=== PATIENT | female | born 1950 | race Caucasian/White ===

== ENCOUNTER 2017-12-10 08:21 | Day surgery (SDC) | payer MEDICARE, MEDICAID ==
[~2017-12-10] VITALS: Ht 154.9 cm; Wt 60.6 kg
[~2017-12-10 08:21] MED LIST: ACET-2119 PO; AMLO10TA13 PO; ATOR40TA PO; BACL10TA PO; BUPR150T8 PO; DONE5TAB7 PO; DOXY150T3 PO; DULR RC; HYDR-3686 PO; LACTC PO; LIDOcaine 1%/PF 5ML 10 MG/ML VIAL SQ ONE; LISI-604 PO; METO25TA6 PO; METO5TAB98 PO; MULT-1085 PO; ONDA4TAB6 PO; OSC500T PO
[2017-12-10 08:40] VITALS: BP 188/86
[2017-12-10 08:45] VITALS: BP 169/82
[2017-12-10 08:50] VITALS: BP 176/84
[2017-12-10] MEDS ORDERED: LIDOcaine 1%/PF 5ML 10 MG/ML VIAL SQ ONE (08:50)
[2017-12-10 08:55] VITALS: BP 155/86
[2017-12-10 09:00] VITALS: BP 186/83
[2017-12-10] MEDS ORDERED: BUPR100T16 PO (09:35)
[2017-12-10] MEDS ORDERED: LISI-604 PO (09:35)
== END 2017-12-10 09:45 ==
LOC: SSTAY O 08:21
PROVIDERS: ATTEND Radiology Diagnostic Radiology
DX: J90 Pleural effusion, not elsewhere classified (principal); E11.22 Type 2 diabetes mellitus with diabetic chronic kidney disease; I13.2 Hypertensive heart and chronic kidney disease with heart failure and with stage 5 chronic kidney disease, or end stage renal disease; N18.6 End stage renal disease; I50.9 Heart failure, unspecified; F10.21 Alcohol dependence, in remission; F32.9 Major depressive disorder, single episode, unspecified; F41.8 Other specified anxiety disorders; I25.810 Atherosclerosis of coronary artery bypass graft(s) without angina pectoris; E78.5 Hyperlipidemia, unspecified; J45.998 Other asthma; M81.0 Age-related osteoporosis without current pathological fracture; Z98.41 Cataract extraction status, right eye; Z86.74 Personal history of sudden cardiac arrest; Z98.42 Cataract extraction status, left eye; Z90.710 Acquired absence of both cervix and uterus; Z86.14 Personal history of Methicillin resistant Staphylococcus aureus infection; Z86.73 Personal history of transient ischemic attack (TIA), and cerebral infarction without residual deficits; Z99.2 Dependence on renal dialysis; Z95.1 Presence of aortocoronary bypass graft; Z88.1 Allergy status to other antibiotic agents; Z79.2 Long term (current) use of antibiotics; Z88.6 Allergy status to analgesic agent; Z79.899 Other long term (current) drug therapy; Z98.890 Other specified postprocedural states
CPT/HCPCS: 32555; 71045; J2001

== ENCOUNTER 2018-03-18 10:49 | Day surgery (SDC) | payer MEDICARE, MEDICAID ==
[~2018-03-18] VITALS: Ht 175.3 cm; Wt 59.5 kg
[~2018-03-18 10:49] MED LIST changes: -ACET-2119 PO; -AMLO10TA13 PO; -BACL10TA PO; +BUPR100T16 PO; -BUPR150T8 PO; -DOXY150T3 PO; -DULR RC; -HYDR-3686 PO; -LIDOcaine 1%/PF 5ML 10 MG/ML VIAL SQ ONE; -METO5TAB98 PO; -MULT-1085 PO; -OSC500T PO
[2018-03-18] MEDS ORDERED: normal saline 1000ml 1,000 ML IV PRN (11:20)
[2018-03-18 11:51] VITALS: BP 181/93
[2018-03-18] MEDS ORDERED: SEVE800T8 PO (12:04)
[2018-03-18] MEDS ORDERED: BUPR100T5 PO (12:04)
[2018-03-18] MEDS ORDERED: lisinopril PO (12:04)
[2018-03-18] MEDS ORDERED: lasix PO (12:04)
[2018-03-18] MEDS ORDERED: ACET325C PO (12:04)
[2018-03-18] MEDS ORDERED: TRAM PO (12:04)
[2018-03-18] MEDS ORDERED: DULR RC (12:04)
[2018-03-18] MEDS ORDERED: INSU100V11 SQ (12:04)
[2018-03-18] MEDS ORDERED: HYDR-4069 PO (12:04)
[2018-03-18] MEDS ORDERED: FOLI0.8T19 PO (12:04)
[2018-03-18 12:24] LABS: BASOPHILS % (AUTO) 0.3 % (0-1); EOSINOPHILS # (AUTO) 0.1 X10'3 (0-0.9); EOSINOPHILS % (AUTO) 1.4 % (0-6); LYMPHOCYTES # (AUTO) 0.7 X10'3 (1.1-4.8); LYMPHOCYTES % (AUTO) 17.3 % (21-51); MEAN CORPUSCULAR HEMOGLOBIN 34.1 PG (27.0-31.0); MEAN CORPUSCULAR VOLUME 100.4 FL (78-98); MEAN PLATELET VOLUME 7.1 FL (7.4-10.4); MONOCYTES # (AUTO) 0.3 X10'3 (0-0.9); MONOCYTES % (AUTO) 8.9 % (2-12); NEUTROPHILS # (AUTO) 2.8 X10'3 (1.8-7.7); NEUTROPHILS % (AUTO) 72.1 % (42-75); PRE OP PLATELET COUNT 190 X10'3 (140-440); RED BLOOD COUNT 3.19 X10'6 (4.20-5.60); RED CELL DISTRIBUTION WIDTH 14.6 % (11.5-14.5)
[2018-03-18 12:27] LABS: PRE OP HEMOGLOBIN 10.9 g/dL (12.0-16.0)
[2018-03-18 12:35] LABS: ALBUMIN 3.3 G/DL (3.4-5.0); ANION GAP 17 (8-16); BLOOD UREA NITROGEN 104 MG/DL (7-18); BUN/CREATININE RATIO 11.9 (6.6-38.0); CHLORIDE 98 MMOL/L (99-107); CREATININE 8.71 MG/DL (0.40-0.90); GLUCOSE 93 MG/DL (70-104); POTASSIUM 5.2 MMOL/L (3.5-5.1); SODIUM 138 MMOL/L (135-145); TOTAL CARBON DIOXIDE 23.5 MMOL/L (24-32); eGFR 5 ML/MIN
[2018-03-18 13:01] LABS: PROTHROMBIN TIME 10.4 SECONDS (9.0-12.0)
[2018-03-18] MEDS ORDERED: LIDOcaine 1%/PF 5ML 10 MG/ML VIAL SQ ONE (13:05)
[2018-03-18] MEDS ORDERED: fentaNYL/PF 50MCG/1 ML 2ML syringe IV PRN (13:05)
[2018-03-18] MEDS ORDERED: midazolam 2 mg/2 ml injection IV PRN (13:05)
[2018-03-18] MEDS ORDERED: iohexol 300mg/ml 100ml inj. ONE (13:11)
[2018-03-18] MEDS ORDERED: LIDOcaine 1% (10mg/ml) 2ml vial ONE (13:14)
[2018-03-18] MEDS ORDERED: heparin 1,000 UNITS/NS 500ml 500 ML ONE (13:15)
[2018-03-18] MEDS ORDERED: midazolam 2 mg/2 ml injection ONE (13:15)
[2018-03-18] MEDS ORDERED: fentaNYL/PF 50MCG/1 ML 2ML syringe ONE ×2 (13:15→14:02)
[2018-03-18 14:35] VITALS: BP 181/93
[2018-03-18 14:50] VITALS: BP 196/79
[2018-03-18 15:05] VITALS: BP 187/84
[2018-03-18 15:20] VITALS: BP 184/79
== END 2018-03-18 15:30 ==
LOC: SSTAY O 10:49
PROVIDERS: ATTEND Radiology Diagnostic Radiology
DX: T82.858A Stenosis of other vascular prosthetic devices, implants and grafts, initial encounter (principal); Y83.8 Other surgical procedures as the cause of abnormal reaction of the patient, or of later complication, without mention of misadventure at the time of the procedure; Y92.89 Other specified places as the place of occurrence of the external cause; E11.22 Type 2 diabetes mellitus with diabetic chronic kidney disease; I13.2 Hypertensive heart and chronic kidney disease with heart failure and with stage 5 chronic kidney disease, or end stage renal disease; N18.6 End stage renal disease; I50.9 Heart failure, unspecified; I25.810 Atherosclerosis of coronary artery bypass graft(s) without angina pectoris; E78.5 Hyperlipidemia, unspecified; F10.21 Alcohol dependence, in remission; F32.9 Major depressive disorder, single episode, unspecified; F41.8 Other specified anxiety disorders; Z90.710 Acquired absence of both cervix and uterus; Z79.891 Long term (current) use of opiate analgesic; Z79.4 Long term (current) use of insulin; Z86.74 Personal history of sudden cardiac arrest; Z87.09 Personal history of other diseases of the respiratory system; Z87.01 Personal history of pneumonia (recurrent); Z90.49 Acquired absence of other specified parts of digestive tract; Z98.41 Cataract extraction status, right eye; Z98.42 Cataract extraction status, left eye; Z86.14 Personal history of Methicillin resistant Staphylococcus aureus infection; Z99.2 Dependence on renal dialysis; Z86.73 Personal history of transient ischemic attack (TIA), and cerebral infarction without residual deficits; Z95.1 Presence of aortocoronary bypass graft; Z88.1 Allergy status to other antibiotic agents; Z88.6 Allergy status to analgesic agent; Z79.899 Other long term (current) drug therapy; Z98.890 Other specified postprocedural states; Z88.8 Allergy status to other drugs, medicaments and biological substances; Z84.89 Family history of other specified conditions
CPT/HCPCS: 36415; 36902; 80048; 82948; 85025; 85610; 99152; 99153; J1644; J2250; J3010; J3490; J7030; Q9967; C1725; C1769; C1894

== ENCOUNTER 2018-04-10 08:06 | Day surgery (SDC) | payer MEDICARE, MEDICAID ==
[~2018-04-10] VITALS: Ht 154.9 cm; Wt 57.8 kg
[2018-04-10] VITALS (7 sets, daily range): BP systolic 186–211; BP diastolic 99–122
[~2018-04-10 08:06] MED LIST changes: +ACET325C PO; -BUPR100T16 PO; +BUPR100T5 PO; +DULR RC; +FOLI0.8T19 PO; +HYDR-4069 PO; +INSU100V11 SQ; -LACTC PO; -LISI-604 PO; +SEVE800T8 PO; +TRAM PO; +lasix PO; +lisinopril PO
[2018-04-10] MEDS ORDERED: normal saline 1000ml 1,000 ML IV PRN (09:00)
[2018-04-10 09:47] LABS: BASOPHILS % (AUTO) 0.2 % (0-1); EOSINOPHILS # (AUTO) 0.1 X10'3 (0-0.9); EOSINOPHILS % (AUTO) 2.3 % (0-6); HEMATOCRIT 32.5 % (35.0-45.0); HEMOGLOBIN 10.7 g/dl (12.0-16.0); LYMPHOCYTES # (AUTO) 0.8 X10'3 (1.1-4.8); MEAN CORPUSCULAR HEMOGLOBIN 33.7 PG (27.0-31.0); MEAN CORPUSCULAR HGB CONC 32.8 % (33.0-36.5); MEAN CORPUSCULAR VOLUME 102.8 FL (78-98); MEAN PLATELET VOLUME 7.4 FL (7.4-10.4); MONOCYTES # (AUTO) 0.3 X10'3 (0-0.9); MONOCYTES % (AUTO) 6.9 % (2-12); NEUTROPHILS # (AUTO) 2.7 X10'3 (1.8-7.7); NEUTROPHILS % (AUTO) 69.6 % (42-75); PLATELET COUNT 238 X10'3 (140-440); RED BLOOD COUNT 3.16 X10'6 (4.20-5.60); RED CELL DISTRIBUTION WIDTH 15.5 % (11.5-14.5)
[2018-04-10 10:01] LABS: ALBUMIN 3.8 G/DL (3.4-5.0); ANION GAP 12 (8-16); BLOOD UREA NITROGEN 61 MG/DL (7-18); BUN/CREATININE RATIO 11.6 (6.6-38.0); CALCIUM 9.3 MG/DL (8.5-10.1); CHLORIDE 99 MMOL/L (99-107); CREATININE 5.25 MG/DL (0.40-0.90); GLUCOSE 157 MG/DL (70-104); POTASSIUM 4.3 MMOL/L (3.5-5.1); SODIUM 140 MMOL/L (135-145); TOTAL CARBON DIOXIDE 28.9 MMOL/L (24-32); eGFR 8 ML/MIN
[2018-04-10 10:10] LABS: PROTHROMBIN TIME 10.4 SECONDS (9.0-12.0)
[2018-04-10] MEDS ORDERED: midazolam 2 mg/2 ml injection IV PRN (10:40)
[2018-04-10] MEDS ORDERED: heparin 1,000 UNITS/NS 500ml 500 ML ICATH ONE (10:40)
[2018-04-10] MEDS ORDERED: LIDOcaine 1%/PF 5ML 10 MG/ML VIAL ONE ×2 (10:40→11:54)
[2018-04-10] MEDS ORDERED: iohexol 300mg/ml 100ml inj. ONE (10:40)
[2018-04-10] MEDS ORDERED: fentaNYL/PF 50MCG/1 ML 2ML syringe IV PRN (10:40)
[2018-04-10] MEDS ORDERED: LIDOcaine 1%/PF 5ML 10 MG/ML VIAL SQ ONE (10:40)
[2018-04-10] MEDS ORDERED: heparin 1,000 units/ml 10ml inj ICATH ONE (10:45)
[2018-04-10] MEDS ORDERED: midazolam 2 mg/2 ml injection ONE (10:53)
[2018-04-10] MEDS ORDERED: fentaNYL/PF 50MCG/1 ML 2ML syringe ONE (10:53)
[2018-04-10] MEDS ORDERED: heparin 1,000 UNITS/NS 500ml 500 ML ONE (10:53)
[2018-04-10] MEDS ORDERED: heparin sodium, porcine/PF 100unit/ml 5ML syringe IV ONE (11:00)
[2018-04-10] MEDS ORDERED: tPA-cathflo 2 MG/2 ml IV flush ONE (11:28)
[2018-04-10] MEDS ORDERED: tPA-cathflo 2 MG/2 ml IV flush IVF ONE (11:45)
[2018-04-10] MEDS ORDERED: heparin 1,000unit/ml 10ml vial 10 ML ONE (12:06)
== END 2018-04-10 13:50 ==
LOC: SSTAY O 08:06
PROVIDERS: ATTEND Radiology Diagnostic Radiology
DX: T82.868A Thrombosis due to vascular prosthetic devices, implants and grafts, initial encounter (principal); Y83.8 Other surgical procedures as the cause of abnormal reaction of the patient, or of later complication, without mention of misadventure at the time of the procedure; Y92.89 Other specified places as the place of occurrence of the external cause; E11.22 Type 2 diabetes mellitus with diabetic chronic kidney disease; I13.2 Hypertensive heart and chronic kidney disease with heart failure and with stage 5 chronic kidney disease, or end stage renal disease; N18.6 End stage renal disease; I50.9 Heart failure, unspecified; I25.810 Atherosclerosis of coronary artery bypass graft(s) without angina pectoris; E78.5 Hyperlipidemia, unspecified; J45.998 Other asthma; M81.0 Age-related osteoporosis without current pathological fracture; F10.10 Alcohol abuse, uncomplicated; F32.9 Major depressive disorder, single episode, unspecified; F41.8 Other specified anxiety disorders; Z87.01 Personal history of pneumonia (recurrent); Z87.09 Personal history of other diseases of the respiratory system; Z87.19 Personal history of other diseases of the digestive system; Z90.49 Acquired absence of other specified parts of digestive tract; Z98.41 Cataract extraction status, right eye; Z98.42 Cataract extraction status, left eye; Z90.710 Acquired absence of both cervix and uterus; Z86.14 Personal history of Methicillin resistant Staphylococcus aureus infection; Z95.1 Presence of aortocoronary bypass graft; Z99.2 Dependence on renal dialysis; Z86.73 Personal history of transient ischemic attack (TIA), and cerebral infarction without residual deficits; Z79.2 Long term (current) use of antibiotics; Z79.891 Long term (current) use of opiate analgesic; Z88.1 Allergy status to other antibiotic agents; Z88.5 Allergy status to narcotic agent; Z88.6 Allergy status to analgesic agent; Z86.69 Personal history of other diseases of the nervous system and sense organs; Z86.74 Personal history of sudden cardiac arrest; Z98.890 Other specified postprocedural states; Z79.899 Other long term (current) drug therapy; Z84.89 Family history of other specified conditions
CPT/HCPCS: 36415; 36558; 36904; 76937; 77001; 80048; 85025; 85610; 99152; 99153; J1644; J2001; J2250; J2997; J3010; J7030; Q9967; 36905; A9270; C1750; C1757; C1769; C1894